=== PATIENT | male | born 1980 | race Caucasian/White ===

== ENCOUNTER 2020-09-14 11:32 | Observation (INO) ==
[2020-09-14] MEDS ORDERED: DILTIAZEM 50 MG/10 ML VIAL IV STA (11:51)
[2020-09-14 11:58] LABS: Basophils % 0.5 % (0.0-0.8); Eosinophils % 0.1 % (0.00-10.9); Hematocrit 45.3 VOL% (42.0-52.0); Hemoglobin 15.8 GM/DL (14.0-18.0); Immature Granulocytes % 0.3 %; Immature Granulocytes Absolute 0.02 #; Lymphocytes # 2.5 10*3/uL (1.4-4.0); Lymphocytes % 32.6 % (21.2-54.2); Mean Corpuscular HGB Conc 34.9 GM/DL (32-36); Mean Corpuscular Volume 93.4 FL (87-102); Mean Platelet Volume 9.5 FL (9.6-12.0); Monocytes % 12.4 % (1.7-12.7); Neutrophils % 54.1 % (38.7-73.9); Platelet Count 94 T/CUMM (130-400); Red Blood Count 4.85 MC/CUMM (3.8-5.5); Red Cell Distribution Width 12.6 % (9.3-17.3); White Blood Count 7.7 T/CUMM (4-12)
[2020-09-14 12:22] LABS: Albumin 3.8 G/DL (3.4-5.0); Bilirubin,Total 0.4 MG/DL (0.2-1.0); Calcium 8.5 MG/DL (8.5-10.1); Osmolality,Calculated 274.5 MOS/KG (273-304); Total Protein 7.4 G/DL (6.4-8.2)
[2020-09-14 12:26] LABS: Barbiturates Screen,Urine Negative (Negative); Benzodiazepines Screen,Urine Negative (Negative); Cannabinoid Screen,Urine Negative (Negative); Opiate Screen,Urine Negative (Negative); Phencyclidine Screen,Urine Negative (Negative)
[2020-09-14 12:32] LABS: Thyroid Stimulating Hormone 0.853 uIU/ml (0.358-3.74)
[2020-09-14] MEDS: DILTIAZEM INJ 100 MG in SODIUM CHLORIDE 0.9% 100 ML IV SCH ×2 (12:38→22:44)
[2020-09-14 13:10] LABS: PT Patient Result 10.9 SECS (9.8-11.9); Partial Thromboplastin Time 24.8 SECS (23.9-33.8)
[2020-09-14 15:07] LABS: Platelet Estimate Decreased
[2020-09-14] MEDS ORDERED: DEXTROSE 50% 25 GM/50 ML VIAL IV PRN (15:20)
[2020-09-14] MEDS ORDERED: ONDANSETRON 4 MG/2 ML VIAL IV PRN (15:20)
[2020-09-14] MEDS ORDERED: ACETAMINOPHEN 325 MG TABLET PO PRN (15:20)
[2020-09-14] MEDS ORDERED: GLUCAGON 1 MG VIAL IM PRN (15:20)
[2020-09-14] MEDS ORDERED: chlordiazePOXIDE 10 MG CAPSULE PO PRN (15:23)
[2020-09-14] MEDS ORDERED: LORazepam 2 MG/1 ML VIAL IV ONE (17:42)
[2020-09-14] MEDS ORDERED: ENOXAPARIN 40 MG/0.4 ML SYRINGE SUBCUT SCH (18:00)
[2020-09-14] MEDS ORDERED: THIAMINE INJ 100 MG, FOLIC ACID INJ 1 MG, MULTIVITAMIN INJ 10 ML in SODIUM CHLORIDE 0.9... IV SCH (20:00)
[2020-09-14] MEDS: GABAPENTIN 400 MG CAPSULE PO SCH (21:12)
[2020-09-15] MEDS: chlordiazePOXIDE 10 MG CAPSULE PO SCH ×3 (00:43→12:04)
[2020-09-15] MEDS ORDERED: POTASSIUM CHLORIDE 20 MEQ TABLET PO ONE ×2 (03:09→08:18)
[2020-09-15] MEDS ORDERED: KETOROLAC 30 MG/1 ML VIAL IV ONE (03:10)
[2020-09-15] MEDS ORDERED: MAGNESIUM SULF RIDER 2 GM/50 ML PREMIX IV PRN (03:12)
[2020-09-15] MEDS ORDERED: MAGNESIUM SULF RIDER 4 GM/100 ML PREMIX IV PRN (03:12)
[2020-09-15 05:42] LABS: Basophils % 0.5 % (0.0-0.8); Eosinophils # 0.1 10*3/uL (0.0-0.87); Eosinophils % 1.6 % (0.00-10.9); Hematocrit 44.3 VOL% (42.0-52.0); Hemoglobin 15.6 GM/DL (14.0-18.0); Immature Granulocytes % 0.3 %; Immature Granulocytes Absolute 0.02 #; Lymphocytes # 2.8 10*3/uL (1.4-4.0); Lymphocytes % 37.8 % (21.2-54.2); Mean Corpuscular HGB Conc 35.2 GM/DL (32-36); Mean Corpuscular Volume 95.5 FL (87-102); Mean Platelet Volume 9.5 FL (9.6-12.0); Monocytes % 11.9 % (1.7-12.7); Neutrophils % 47.9 % (38.7-73.9); Red Blood Count 4.64 MC/CUMM (3.8-5.5); Red Cell Distribution Width 12.4 % (9.3-17.3); White Blood Count 7.3 T/CUMM (4-12)
[2020-09-15 05:44] LABS: Platelet Count 75 T/CUMM (130-400)
[2020-09-15 06:00] LABS: Calcium 8.8 MG/DL (8.5-10.1); Osmolality,Calculated 268.1 MOS/KG (273-304); Potassium 3.5 MMOL/L (3.5-5.1)
[2020-09-15] MEDS ORDERED: MAGNESIUM SULF RIDER 2 GM/50 ML PREMIX IV ONE (08:18)
[2020-09-15] MEDS ORDERED: DILTIAZEM CD 120 MG CAPSULE PO SCH (09:00)
[2020-09-15] MEDS ORDERED: ASPIRIN EC 81 MG TABLET PO SCH (09:00)
[2020-09-15] MEDS: GABAPENTIN 400 MG CAPSULE PO SCH (09:03)
[2020-09-15] MEDS ORDERED: LORazepam 2 MG/1 ML VIAL IV PRN (10:29)
[2020-09-15 11:48] VITALS: BP 154/94
== END 2020-09-15 14:42 | disposition home or self-care (01) ==
LOC: N.ED 11:32 → N.EDINP 11:32 → N.TELES 16:06
PROVIDERS: ADMIT Internal Medicine; ATTEND Internal Medicine